=== PATIENT | female | born 1965 | race Caucasian/White ===

== ENCOUNTER 2016-11-18 11:37 | Emergency (ER) | payer OTHER ==
[~2016-11-18] VITALS: Ht 152.4 cm; Wt 55.0 kg
[~2016-11-18 11:37] MED LIST: DARU1TAB2 PO; EMTR1TAB PO; IBUP800T23 PO; LISI-515 PO
[2016-11-18 11:38] VITALS: BP 149/77; PULSE 88; RESP 24; TEMP 97.9; O2SAT 100
[2016-11-18] MEDS ORDERED: IBUP800T23 PO (13:18)
[2016-11-18] MEDS ORDERED: WALKER/ADULT/FO1 MIS (13:18)
--- NOTE | 2016-11-18 13:18 | PD ---
HPI Chief Complaint: Musculoskeletal Complaint Time Seen by Provider: 13:14 Travel History International Travel<30 days: No Contact w/Intl Traveler<30days: No Traveled to known affect area: No History of Present Illness HPI 51-year-old female presents to the emergency Department with complaint of left knee pain since Sunday. Denies injury. This pain is worsened and she's been able to bear weight. Pain is worse with flexion. Pain is decreased with full extension and keeping the knee warm. Denies fever, vomiting. Denies paresthesias, loss of sensation to the affected extremity. Wrist range of motion secondary to pain. Has taken ibuprofen for symptom management. Has no other medical complaints. Multiple allergies verified on chart. No other modifying factors or associated signs and symptoms. PFSH Past Medical History Diminished Hearing: No Medical other: Yes (HIV) ?: Not Past Surgical History Surgical History: No Previous Surgery Hysterectomy: Yes Social History Alcohol Use: No Tobacco Use: No Substance Use: No Allergies-Medications (Allergen,Severity, Reaction): Coded Allergies: penicillin G (Unverified Allergy, Intermediate, Shortness of Breath, ) iodine (Unverified Allergy, Mild, Diarrhea, 11/08/16) potassium iodide (Unverified Allergy, Mild, Diarrhea, 11/08/16) povidone-iodine (Unverified Allergy, Mild, Diarrhea, 11/08/16) sodium iodide (Unverified Allergy, Mild, Diarrhea, 11/08/16) sodium iodide (Unverified Allergy, Mild, Diarrhea, 11/08/16) chocolate flavor (Unverified Allergy, Unknown, 11/08/16) lactose (Unverified Allergy, Unknown, 11/08/16) Reported Meds & Prescriptions Reported Meds & Active Scripts Active Ibuprofen 800 Mg Tab 800 Mg PO Q6HR PRN Walker/Adult/Folding (Device) 1 Mis Mis Ea .ROUTE DIRECTED Ibuprofen 800 Mg Tab 800 Mg PO Q6HR PRN Reported Lisinopril 20 Mg Tab 20 Mg PO DAILY Prezcobix (Darunavir-Cobicistat) 800-150 Mg Tab 1 Tab PO DAILY Truvada (Emtricitabine-Tenofovir Disoproxil Fumarate) 200-300 Mg Tab 1 Tab PO DAILY Review of Systems Except as stated in HPI: all other systems reviewed are Neg Physical Exam Narrative GENERAL: Well-nourished, well-developed female patient, in no acute distress; afebrile, nontoxic-appearing SKIN: Warm and dry. HEAD: Atraumatic. Normocephalic. EYES: Pupils equal and round. No scleral icterus. No injection or drainage. ENT: Mucosa pink and moist. Airway patent. NECK: Trachea midline. CARDIOVASCULAR: Regular rate. RESPIRATORY: No accessory muscle use. GASTROINTESTINAL: Flat. MUSCULOSKELETAL: Left knee mildly edematous; without erythema, ecchymosis; full range of motion and flexion to 90; point tenderness to the patellar aspect; joint stable with negative drawer test; no obvious deformity. Left Lower extremity is supple and non-tense with 2+ pedal pulse and sensory intact and without erythema or edema. Unable to assess gait secondary to patient guarding. NEUROLOGICAL: Awake and alert. Oriented 3. No obvious cranial nerve deficits. Motor grossly within normal limits. Normal speech. PSYCHIATRIC: Appropriate mood and affect; insight and judgment normal. Data Data Last Documented VS Vital Signs Date Time Temp Pulse Resp B/P (MAP) Pulse Ox O2 Delivery O2 Flow Rate FiO2 11/18/16 11:38 97.9 88 24 149/77 (101) 100 Room Air Orders Orders Knee, Complete (4vws) (11/18/16 13:13) Crutches (11/18/16 13:13) Ketorolac Inj (Toradol Inj) (11/18/16 14:15) MDM Medical Decision Making Medical Screen Exam Complete: Yes Emergency Medical Condition: Yes Medical Record Reviewed: Yes Differential Diagnosis Arthritis, bursitis, knee sprain Narrative Course 51-year-old female with left knee pain. Knee pain is out of proportion on physical exam. I will order an x-ray to rule out any acute process. 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 No fracture or subluxation of the left knee. Amauri Marshall MD I provided the patient with Canvas knee splint secondary to severe pain with bending the knee. Crutches provider for support. Prescription for a walker provided. Ibuprofen prescribed for home. Instructed patient to follow up with orthopedics. Instructed patient to follow up with primary care provider. Patient verbalizes understanding and agreement with treatment plan. Patient is medically cleared and stable for discharge. Discussed reasons to return to the emergency department. Patient agrees with treatment plan. The patients vital signs are stable and the patient is stable for outpatient follow-up and treatment. Patient discharged home, stable and in no acute distress. Diagnosis Primary Impression: Left knee pain Qualified Codes: M25.562 - Pain in left knee Referrals: [facility] Primary Care Physician Patient Instructions: Crutch Instructions (ED), General Instructions, Knee Pain (ED) Additional Instructions: Tylenol or ibuprofen as needed and as directed to reduce pain and inflammation Rest, ice, compress, and elevate extremity to decrease pain and inflammation Knee brace for support Crutches/walker for support Avoid aggravating activity; increase activity as tolerated Follow-up with primary care provider Follow-up with orthopedics Return to the emergency department immediately with worsening symptoms Med/Other Pt SpecificInfo: Prescription(s) given Scripts Ibuprofen (Ibuprofen) 800 Mg Tab 800 MG PO Q6HR Y for PAIN, #40 TAB 0 Refills Prov: Ame Aguirre 11/18/16 Walker/Adult/Folding (Walker/Adult/Folding) 1 Mis Mis EA .ROUTE DIRECTED, #1 0 Refills Prov: Ame Aguirre 11/18/16 Disposition: 01 DISCHARGE HOME Condition: Stable Ame Aguirre Nov 18, 2016 13:18
--- NOTE | 2016-11-18 13:43 | RADRPT ---
EXAM DATE/TIME: 11/18/2016 13:32 [facility] COMPARISON: No previous studies available for comparison. INDICATIONS : Pain for three days without trauma, only when bending knee. MEDICAL HISTORY : None. SURGICAL HISTORY : None. ENCOUNTER: Initial ACUITY: 3 days PAIN SCORE: 6/10 LOCATION: Left knee. FINDINGS: No fracture or subluxation seen of the left knee. There does appear to be some thickening of the exte nsor mechanism, especially distal quadriceps. I believe there is a bipartite patella. 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 No fracture or subluxation of the l eft knee. Amauri Marshall MD on November 18, 2016 at 13:38 Board Certified Radiologist. This report was verified electronically.
[2016-11-18] MEDS ORDERED: KETOROLAC TROMETHAMINE 60 MG/2 ML (IM) VIAL IM ONE (14:15)
== END 2016-11-18 14:22 | disposition home or self-care (01) ==
LOC: NEPK 11:37
DX: M25.562 Pain in left knee (principal)
CPT/HCPCS: 73564; 96372; 99284; E0113; J1885; L1830